=== PATIENT | male | born 1945 ===

== ENCOUNTER 2020-09-16 15:23 | Outpatient (NON) | payer MEDICARE, OTHER, SELFPAY | END 2020-09-16 15:24 | PROVIDERS: Visit Provider Specialist | DX: C44.310 Basal cell carcinoma of skin of unspecified parts of face (principal); L82.1 Other seborrheic keratosis | CPT/HCPCS: 88305 ==

== ENCOUNTER 2020-09-28 07:14 | Outpatient (NON) | payer MEDICARE, OTHER, SELFPAY | END 2020-09-28 07:15 | disposition home or self-care (01) | PROVIDERS: Visit Provider Specialist | DX: L82.1 Other seborrheic keratosis (principal) | CPT/HCPCS: 88305 ==